=== PATIENT | female | born 1975 | race Caucasian/White ===

== ENCOUNTER 2021-09-17 05:48 | Emergency (ER) | payer MEDICAID ==
[~2021-09-17] VITALS: Ht 149.9 cm; Wt 49.0 kg
--- NOTE | 2021-09-17 06:10 | NUR ---
BIBS C/O SUDDEN LEFT ANKLE PAIN. PATIENT ALERT AND ORIENTED X3. PATIENT BROUGHT IN ON OUR WHEELCHAIR BUT IS ORIGINALLY AMBULATORY.
[2021-09-17] MEDS ORDERED: KETOROLAC TROMETHAMINE INJ 30 MG/ML VIAL ONE ×2 (06:48→06:51)
[2021-09-17] MEDS ORDERED: KETOROLAC TROMETHAMINE INJ 30 MG/ML VIAL IM ONE (07:00)
[2021-09-17] MEDS ORDERED: IBUP-1955 PO (07:21)
--- NOTE | 2021-09-17 08:45 | NUR ---
trevor bandage applied to affected extremity. Crutches dispensed. Pt instructed on proper use of crutches. Patient able to demonstrate correct use of crutches. Patient discharged to home in stable condition. Written and verbal after care instructions given. Patient verbalizes understanding of instruction.
--- NOTE | 2021-09-17 08:47 | NUR ---
Patient discharged to home in stable condition. Written and verbal after care instructions given. Patient verbalizes understanding of instruction.
[2021-09-17 08:48] VITALS: BP 115/64
== END 2021-09-17 08:48 | disposition home or self-care (01) ==
LOC: ER 05:58
DX: M25.572 Pain in left ankle and joints of left foot (principal); M25.472 Effusion, left ankle; Z88.0 Allergy status to penicillin
CPT/HCPCS: 73610; 73630; 93971; 96372; 99284; J1885